=== PATIENT | male | born 1945 | race Caucasian/White ===

== ENCOUNTER 2021-05-05 07:39 | Inpatient (IN) ==
[~2021-05-05 07:39] MED LIST: RAPID SEQUENCE INDUCTION BAG ONE
[2021-05-05] MEDS ORDERED: ALBUT/IPRATROP 3MG/0.5MG NEB 3 ML VIAL NEB ONE (07:44)
[2021-05-05] MEDS ORDERED: ALBUT/IPRATROP 3MG/0.5MG NEB 3 ML VIAL INH STA (07:44)
[2021-05-05] MEDS ORDERED: IPRATROPIUM BROMIDE NEB SOLN 0.02% 2.5 ML VIAL ONE (07:46)
[2021-05-05 08:02] LABS: Basophils # (auto) 0.07 K/uL (0-0.2); Basophils % (auto) 0.8 %; Eosinophils # (auto) 0.77 K/uL (0-0.5); Eosinophils % (auto) 8.7 %; Hemoglobin 14.1 g/dL (14.0-18.0); Immature Granulocytes # (auto) 0.03 K/uL (0.00-0.02); Immature Granulocytes % (auto) 0.3 %; Lymphocytes # (auto) 3.81 K/uL (1.2-3.4); Mean Corpuscular Hemoglobin 32.2 pg (25-34); Mean Corpuscular Hgb Conc 32.8 g/dL (32-36); Mean Corpuscular Volume 98.2 fL (80-100); Mean Platelet Volume 13.5 fL (7.4-10.4); Monocytes # (auto) 0.89 K/uL (0.11-0.59); Neutrophils % (auto) 37.2 %; Platelet Count 218 K/uL (130-400); RDW Coefficient of Variation 14.2 % (11.5-14.5); Red Blood Count 4.38 M/uL (4.7-6.1); White Blood Count 8.87 K/uL (4.8-10.8)
[2021-05-05 08:06] LABS: Base Excess VBG -9.5 mEq/L; Oxygen Saturation VBG 83.6 %; pH VBG 7.23 (7.36-7.41)
[2021-05-05 08:14] LABS: INR 1.1 (0.9-1.1); Partial Thromboplastin Ratio 1.3; Partial Thromboplastin Time 33.3 Seconds (21.0-31.0); Prothrombin Time 11.1 Seconds (9.0-12.0)
[2021-05-05 08:22] LABS: Albumin Level 3.3 gm/dl (3.4-5.0); BUN Creatinine Ratio 21.3 (10-20); Calcium 8.5 mg/dl (8.5-10.1); Creatinine Clr Calc Pharmacy 69.8 ml/min; Est GFR (African American) 88.8 ml/min; Est GFR (Non-African American) 76.6 ml/min; Magnesium 2.1 mg/dl (1.8-2.4)
[2021-05-05 08:27] LABS: Bilirubin,Total 0.4 mg/dl (0.2-1); Globulin 3.2 gm/dl (2.5-4.0); Total Protein 6.5 gm/dl (6.4-8.2); Troponin I 0.018 ng/ml (0-0.045)
--- NOTE | 2021-05-05 08:42 | XRay Report ---
XR chest 1V portable CLINICAL HISTORY: Dyspnea TECHNIQUE: Single frontal radiograph of the chest was obtained. Comparison: None available at the time of this dictation. FINDINGS: No lines and tubes are seen. The cardiomediastinal silhouette is normal. Bilateral lower lung predomi nant airspace opacities are seen. No evidence of pleural effusion or pneumothorax. IMPRESSION: Bilateral lower lung predominant airspace opacities which may represent atelectasis, pneumonia, and/o r aspiration. ACT 112: Negative or not required by law. Electronically signed by: Dany Guan M.D. 05/05/2021 8:40 AM
--- NOTE | 2021-05-05 08:47 | Emergency Department Note ---
Impression & Plan COPD (chronic obstructive pulmonary disease), Acute on chronic respiratory failure with hypoxia, Hemoptysis ED Provider Note Provider: Tho Grimaldo MD DATE OF SERVICE: 05/05/2021 CHIEF COMPLAINT: Shortness of breath, coughing blood HISTORY OF PRESENT ILLNESS: Patient is a 75-year-old gentleman history of VTE on Xarelto presented today with sudden onset of shortness of breath and coughing up a fair amount of blood just this morning. Denies recent fevers. EMS states that they were called and found the patient just outside of his residence very short of breath and coughing up some blood. Was hypoxic on room air. Placed on CPAP and brought here. Patient denies any trauma. He denies any pain at this time. Patient states he is took his Xarelto last last evening and has been on it since of blood clot in his leg 14 years ago. Patient states it still feels like he is coughing up a bit of blood. Denies recent illness or URI symptoms. Again reports the shortness of breath and coughing have been acutely today. REVIEW OF SYSTEMS: A total of 10 review of systems was obtained and negative except as stated above in the HPI. PAST MEDICAL HISTORY: As noted above MEDICATIONS: Reviewed home medications SOCIAL HISTORY:smoker PHYSICAL EXAM: GENERAL: alert and oriented seated on the stretcher CPAP/BiPAP mask in place with increased work of breathing Head: normocephalic and atraumatic EYES: No injection, discharge or icterus. NECK: Trachea midline. ENT: Mucous membranes pink and moist with some blood in the oropharynx noted. Some clots noted. LUNGS: Airway patent. No retractions tachypneic Breath sounds with coarse breath sounds in lower lobes bilaterally with some crackles HEART: Regular rate and rhythm. No chest wall tenderness ABDOMEN: Soft and non-tender, without guarding or rebound. SKIN: Acyanotic, warm, dry, without rashes EXTREMITIES: Without swelling, tenderness or deformity NEUROLOGICAL: No focal deficits. No aphasia. No facial droop or slurred speech. EK bpm sinus tachycardia with PVC. No acute ST segment elevation or depression with a QTC of 474. CONTINUOUS CARDIAC MONITORING: was ordered and showed a heart rate of 70s-110s bpm in normal sinus rhythm to sinus tachycardia Patient's laboratory studies and imaging reviewed. Differential includes Reactive airway disease, pneumonia, pneumothorax, COPD, CHF, infections, cardiac ischemia, pulmonary embolism, musculoskeletal, gastrointestinal, as well as other pathologies. IMPRESSION/MEDICAL DECISION MAKING: Patient with acute shortness of breath and coughing up blood on Xarelto. Patient also hypoxic on room air requiring BiPAP supplementation. Given DuoNeb. Coarse breath sounds more than wheezy. Does not seem that infectious no fever noted. Procalcitonin and white blood cell count not elevated. No severe anemia. No hypercarbia noted on VBG or lactate elevation. Chest x-ray questions basilar consolidation and a CT of the chest was completed. No active extravas ation noted per radiology or evidence of PE but groundglass opacities of the lower lobes noted question possible aspiration of the blood. Patient is oxygen is being weaned. Does not seem to be exsanguinating or needing intubation at this point. Bleeding is minimal. Do not believe this is GI bleed. Discussed with the hospitalist team for further care here at the hospital and pulmonary care. Question if he is experienced a small pulmonary vessel rupture and with his anticoagulation began to experience some bleeding. DIAGNOSIS: Hypoxic respiratory failure, hemoptysis, shortness of breath DISPOSITION: Hospitalist will evaluate Patient was agreeable with this plan. Critical Care I have personally spent 32 minutes of critical care time in the direct management of this patient. This includes bedside care, interpretation of diagnostic studies, and testing, discussion with consultants, patient, and other required patient management activities. These 32 minutes is in excess of all separately billable procedures. Past Med/Surg History Medical History COPD (chronic obstructive pulmonary disease) Hemoptysis HLD (hyperlipidemia) Hx of deep venous thrombosis Tobacco dependence due to cigarettes Family History Father Cancer Pancreatic cancer Brother Cancer Metastatic carcinoma with unknown primary Sister Cancer Renal cell carcinoma Mother Alzheimer disease Social History Smoking Status: Current every day smoker Tobacco Type: Cigarettes Hx Alcohol Use: Yes Alcohol type: beer Hx Substance Use: No Preferred Language: Romanian Communication Ability: Effective Bellmaker Required: No Beliefs That Will Affect Care: None Current Living Situation: Alone Feels Safe at Home: Yes Safety Concerns: Feels Safe At This Time Allergies Allergies Allergy/AdvReac Type Severity Reaction Status Date / Time adhesive Allergy Intermediate Verified 05/05/21 09:07 No Known Allergies Allergy Unknown Verified 05/05/21 09:07 Home Meds Home Medications Medication Instructions Recorded Confirmed atorvastatin 10 mg tablet 10 mg PO DAILY 05/05/21 05/05/21 hydroxyzine HCl 25 mg tablet 25 mg PO HS 05/05/21 05/05/21 rivaroxaban 20 mg tablet (Xarelto) 20 mg PO HS 05/05/21 05/05/21 Results & Data (ED) Vital Signs Vital Signs - 24 hr 05/05/21 07:45 05/05/21 07:50 05/05/21 08:01 Temperature 36.7 C Temperature Source Oral Pulse Rate 84 94 H Pulse Rate [Apical] Pulse Rate [Right Finger] 84 Pulse Rhythm Regular Pulse Rhythm [Apical] Pulse Strength Normal Pulse Strength [Apical] Respiratory Rate 30 H 30 H 36 H Respiratory Effort / Characteristics Non-Labored Spontaneous Spontaneous Accessory Muscle Use Labored Short of Breath Respiratory Depth Respiratory Pattern Tachypnea Tachypnea Blood Pressure 170/101 H Blood Pressure [Right Arm] Blood Pressure Mean 124 Blood Pressure Mean [Right Arm] Blood Pressure Position Lying Blood Pressure Position [Right Arm] Pulse Oximetry 98 98 89 L Oxygen Delivery Method BiPAP CPAP Fraction of Inspired Oxygen 45 45 45 SaO2/FiO2 Ratio 197 Sepsis Recent Fever Within 48 Hours No Sepsis New/Unexplained Change in Mental Status No Sepsis Action Taken by Nursing No Action Required 05/05/21 08:08 05/05/21 08:09 05/05/21 08:21 Temperature Temperature Source Pulse Rate Pulse Rate [Apical] Pulse Rate [Right Finger] Pulse Rhythm Pulse Rhythm [Apical] Pulse Strength Pulse Strength [Apical] Respiratory Rate Respiratory Effort / Characteristics Labored Short of Breath Respiratory Depth Respiratory Pattern Tachypnea Blood Pressure Blood Pressure [Right Arm] Blood Pressure Mean Blood Pressure Mean [Right Arm] Blood Pressure Position Blood Pressure Position [Right Arm] Pulse Oximetry 88 L Oxygen Delivery Method CPAP CPAP Fraction of Inspired Oxygen 50 SaO2/FiO2 Ratio Sepsis Recent Fever Within 48 Hours Sepsis New/Unexplained Change in Mental Status Sepsis Action Taken by Nursing 05/05/21 08:28 05/05/21 09:00 05/05/21 09:07 Temperature Temperature Source Pulse Rate 93 H Pulse Rate [Apical] 89 91 H Pulse Rate [Right Finger] Pulse Rhythm Pulse Rhythm [Apical] Regular Regular Pulse Strength Pulse Strength [Apical] Respiratory Rate 24 20 20 Respiratory Effort / Characteristics Short of Breath Non-Labored Non-Labored Spontaneous Respiratory Depth Normal Respiratory Pattern Regular Regular Blood Pressure Blood Pressure [Right Arm] 147/87 H 142/77 H Blood Pressure Mean Blood Pressure Mean [Right Arm] 107 98 Blood Pressure Position Blood Pressure Position [Right Arm] Lying Lying Pulse Oximetry 92 100 100 Oxygen Delivery Method CPAP CPAP Fraction of Inspired Oxygen 50 50 50 SaO2/FiO2 Ratio 184 200 Sepsis Recent Fever Within 48 Hours Sepsis New/Unexplained Change in Mental Status Sepsis Action Taken by Nursing 05/05/21 10:00 Temperature Temperature Source Pulse Rate Pulse Rate [Apical] 79 Pulse Rate [Right Finger] Pulse Rhythm Pulse Rhythm [Apical] Regular Pulse Strength Pulse Strength [Apical] Normal Respiratory Rate 20 Respiratory Effort / Characteristics Non-Labored Respiratory Depth Normal Respiratory Pattern Blood Pressure Blood Pressure [Right Arm] 122/81 Blood Pressure Mean Blood Pressure Mean [Right Arm] 94 Blood Pressure Position Blood Pressure Position [Right Arm] Pulse Oximetry 99 Oxygen Delivery Method CPAP Fraction of Inspired Oxygen 50 SaO2/FiO2 Ratio 198 Sepsis Recent Fever Within 48 Hours Sepsis New/Unexplained Change in Mental Status Sepsis Action Taken by Nursing Laboratory Data Result diagrams: 05/05/21 07:49 05/05/21 07:49 Lab Results 05/05/21 05/05/21 05/05/21 Range/Units 07:49 07:49 07:49 WBC 8.87 (4.8-10.8) K/uL RBC 4.38 L (4.7-6.1) M/uL Hgb 14.1 (14.0-18.0) g/dL Hct 43.0 (42-52) % MCV 98.2 (80-100) fL MCH 32.2 (25-34) pg MCHC 32.8 (32-36) g/dL RDW Std Deviation 51.0 H (36.4-46.3) fL RDW Coeff of Stone 14.2 (11.5-14.5) % Plt Count 218 (130-400) K/uL MPV 13.5 H (7.4-10.4) fL Immature Gran % (Auto) 0.3 % Neut % (Auto) 37.2 % Lymph % (Auto) 43.0 % Harris % (Auto) 10.0 % Eos % (Auto) 8.7 % Baso % (Auto) 0.8 % Neut # (Auto) 3.30 (1.4-6.5) K/uL Lymph # (Auto) 3.81 H (1.2-3.4) K/uL Harris # (Auto) 0.89 H (0.11-0.59) K/uL Eos # (Auto) 0.77 H (0-0.5) K/uL Baso # (Auto) 0.07 (0-0.2) K/uL Immature Gran # (Auto) 0.03 H (0.00-0.02) K/uL PT 11.1 (9.0-12.0) Seconds INR 1.1 (0.9-1.1) APTT 33.3 H (21.0-31.0) Seconds PTT Ratio 1.3 VBG pH (7.36-7.41) VBG pCO2 (38-50) mmHg VBG pO2 mmHg VBG HCO3 mmol/L VBG O2 Saturation % VBG Base Excess mEq/L Barometric Pressure mm/Hg Sodium 141 (136-145) mmol/L Potassium 4.0 (3.5-5.1) mmol/L Chloride 112 H (98-107) mmol/L Carbon Dioxide 20 L (21-32) mmol/L Anion Gap 9.0 (3-11) BUN 21 H (7-18) mg/dl Creatinine 0.97 (0.6-1.4) mg/dl Est Cr Clr Drug Dosing 69.8 ml/min Est GFR ( Amer) 88.8 ml/min Est GFR (Non-Af Amer) 76.6 ml/min BUN/Creatinine Ratio 21.3 H (10-20) Glucose 159 H (70-99) mg/dl Lactate (0.4-2.0) mmol/L Calcium 8.5 (8.5-10.1) mg/dl Magnesium 2.1 (1.8-2.4) mg/dl Total Bilirubin 0.4 (0.2-1) mg/dl AST 29 (15-37) U/L ALT 28 (12-78) U/L Alkaline Phosphatase 70 (45-117) U/L Troponin I 0.018 (0-0.045) ng/ml NT-Pro-B Natriuret Pep 126 (0-900) pg/ml Total Protein 6.5 (6.4-8.2) gm/dl Albumin 3.3 L (3.4-5.0) gm/dl Globulin 3.2 (2.5-4.0) gm/dl Albumin/Globulin Ratio 1.0 (0.9-2) Procalcitonin (0-0.5) ng/ml COVID-19 Eval Order SARS-CoV-2 (PCR) (Negative) 05/05/21 05/05/21 05/05/21 Range/Units 07:51 07:51 07:54 WBC (4.8-10.8) K/uL RBC (4.7-6.1) M/uL Hgb (14.0-18.0) g/dL Hct (42-52) % MCV (80-100) fL MCH (25-34) pg MCHC (32-36) g/dL RDW Std Deviation (36.4-46.3) fL RDW Coeff of Stone (11.5-14.5) % Plt Count (130-400) K/uL MPV (7.4-10.4) fL Immature Gran % (Auto) % Neut % (Auto) % Lymph % (Auto) % Harris % (Auto) % Eos % (Auto) % Baso % (Auto) % Neut # (Auto) (1.4-6.5) K/uL Lymph # (Auto) (1.2-3.4) K/uL Harris # (Auto) (0.11-0.59) K/uL Eos # (Auto) (0-0.5) K/uL Baso # (Auto) (0-0.2) K/uL Immature Gran # (Auto) (0.00-0.02) K/uL PT (9.0-12.0) Seconds INR (0.9-1.1) APTT (21.0-31.0) Seconds PTT Ratio VBG pH 7.23 L (7.36-7.41) VBG pCO2 43 (38-50) mmHg VBG pO2 58 mmHg VBG HCO3 18 mmol/L VBG O2 Saturation 83.6 % VBG Base Excess -9.5 mEq/L Barometric Pressure 731.5 mm/Hg Sodium (136-145) mmol/L Potassium (3.5-5.1) mmol/L Chloride (98-107) mmol/L Carbon Dioxide (21-32) mmol/L Anion Gap (3-11) BUN (7-18) mg/dl Creatinine (0.6-1.4) mg/dl Est Cr Clr Drug Dosing ml/min Est GFR ( Amer) ml/min Est GFR (Non-Af Amer) ml/min BUN/Creatinine Ratio (10-20) Glucose (70-99) mg/dl Lactate 1.6 (0.4-2.0) mmol/L Calcium (8.5-10.1) mg/dl Magnesium (1.8-2.4) mg/dl Total Bilirubin (0.2-1) mg/dl AST (15-37) U/L ALT (12-78) U/L Alkaline Phosphatase (45-117) U/L Troponin I (0-0.045) ng/ml NT-Pro-B Natriuret Pep (0-900) pg/ml Total Protein (6.4-8.2) gm/dl Albumin (3.4-5.0) gm/dl Globulin (2.5-4.0) gm/dl Albumin/Globulin Ratio (0.9-2) Procalcitonin < 0.05 (0-0.5) ng/ml COVID-19 Eval Order SARS-CoV-2 (PCR) (Negative) 05/05/21 05/05/21 Range/Units 08:19 08:19 WBC (4.8-10.8) K/uL RBC (4.7-6.1) M/uL Hgb (14.0-18.0) g/dL Hct (42-52) % MCV (80-100) fL MCH (25-34) pg MCHC (32-36) g/dL RDW Std Deviation (36.4-46.3) fL RDW Coeff of Stone (11.5-14.5) % Plt Count (130-400) K/uL MPV (7.4-10.4) fL Immature Gran % (Auto) % Neut % (Auto) % Lymph % (Auto) % Harris % (Auto) % Eos % (Auto) % Baso % (Auto) % Neut # (Auto) (1.4-6.5) K/uL Lymph # (Auto) (1.2-3.4) K/uL Harris # (Auto) (0.11-0.59) K/uL Eos # (Auto) (0-0.5) K/uL Baso # (Auto) (0-0.2) K/uL Immature Gran # (Auto) (0.00-0.02) K/uL PT (9.0-12.0) Seconds INR (0.9-1.1) APTT (21.0-31.0) Seconds PTT Ratio VBG pH (7.36-7.41) VBG pCO2 (38-50) mmHg VBG pO2 mmHg VBG HCO3 mmol/L VBG O2 Saturation % VBG Base Excess mEq/L Barometric Pressure mm/Hg Sodium (136-145) mmol/L Potassium (3.5-5.1) mmol/L Chloride (98-107) mmol/L Carbon Dioxide (21-32) mmol/L Anion Gap (3-11) BUN (7-18) mg/dl Creatinine (0.6-1.4) mg/dl Est Cr Clr Drug Dosing ml/min Est GFR ( Amer) ml/min Est GFR (Non-Af Amer) ml/min BUN/Creatinine Ratio (10-20) Glucose (70-99) mg/dl Lactate (0.4-2.0) mmol/L Calcium (8.5-10.1) mg/dl Magnesium (1.8-2.4) mg/dl Total Bilirubin (0.2-1) mg/dl AST (15-37) U/L ALT (12-78) U/L Alkaline Phosphatase (45-117) U/L Troponin I (0-0.045) ng/ml NT-Pro-B Natriuret Pep (0-900) pg/ml Total Protein (6.4-8.2) gm/dl Albumin (3.4-5.0) gm/dl Globulin (2.5-4.0) gm/dl Albumin/Globulin Ratio (0.9-2) Procalcitonin (0-0.5) ng/ml COVID-19 Eval Order Covid19 at [facility] SARS-CoV-2 (PCR) NEGATIVE (Negative) Administered Medications Albuterol (Albut/Ipratrop 3mg/0.5mg Neb 3 Ml Vial) 3 ml NEB Q4R JORGE LUIS Stop: 06/04/21 12:28 Last Admin: 05/05/21 12:46 Dose: 3 ml Documented by: [id number] Folic Acid (Folic Acid 1 Mg Tab) 1 mg PO QAM JORGE LUIS Stop: 06/04/21 12:29 Last Admin: 05/05/21 12:46 Dose: 1 mg Documented by: [id number] Guaifenesin/Codeine Phosphate (Guaifenesin/Codeine 100mg/10mg 5ml Udc) 5 ml PO Q6H JORGE LUIS Stop: 06/04/21 13:59 Last Admin: 05/05/21 15:07 Dose: 5 ml Documented by: [id number] Doxycycline Hyclate 100 mg/ (Dextrose) 110 mls @ 50 mls/hr IV Q12H JOREG LUIS Stop: 05/10/21 13:59 Last Admin: 05/05/21 15:07 Dose: 50 mls/hr Documented by: [id number] Methylprednisolone 40 mg/ (Syringe) 0.64 mls @ 1.5 mls/min IV Q12H JORGE LUIS Stop: 06/04/21 13:59 Last Admin: 05/05/21 15:07 Dose: 1.5 mls/min Documented by: [id number] Nicotine (Nicotine 21 Mg/24 Hr Tdsy) 21 mg TD QAM [facility] Stop: 06/04/21 10:59 Last Admin: 05/05/21 12:41 Dose: Not Given Documented by: [id number] Thiamine HCl (Thiamine Hcl 100 Mg Tab) 100 mg PO QAM [facility] Stop: 06/04/21 12:29 Last Admin: 05/05/21 12:46 Dose: 100 mg Documented by: [id number] Discontinued Medications Albuterol (Albut/Ipratrop 3mg/0.5mg Neb 3 Ml Vial) 12 ml NEB ONE ONE Stop: 05/05/21 07:45 Last Admin: 05/05/21 08:21 Dose: 12 ml Documented by: [id number] Albuterol (Albut/Ipratrop 3mg/0.5mg Neb 3 Ml Vial) 12 ml INH ONE STA Stop: 05/05/21 07:45 Last Admin: 05/05/21 08:21 Dose: Not Given Documented by: [id number] Ioversol (Optiray 320 125ml) 120 ml IV ONCE ONE Stop: 05/05/21 09:06 Last Admin: 05/05/21 08:59 Dose: 120 ml Documented by: [id number] Ipratropium Fletcher (Ipratropium Fletcher Neb Soln 0.02% 2.5 Ml Vial) Confirm Administered Dose 2 mg .ROUTE .STK-MED ONE Stop: 05/05/21 07:47 Last Admin: 05/05/21 09:55 Dose: Not Given Documented by: [id number] Miscellaneous (Rapid Sequence Induction Bag) Confirm Administered Dose 1 ea .ROUTE .STK-MED ONE Stop: 05/05/21 07:38 Last Admin: 05/05/21 09:55 Dose: Not Given Documented by: [id number] Imaging Data Radiologist's Impression: Chest X-Ray 05/05/21 07:44 XR chest 1V portable CLINICAL HISTORY: Dyspnea TECHNIQUE: Single frontal radiograph of the chest was obtained. Comparison: None available at the time of this dictation. FINDINGS: No lines and tubes are seen. The cardiomediastinal silhouette is normal. Bilateral lower lung predominant airspace opacities are seen. No evidence of pleural effusion or pneumothorax. IMPRESSION: Bilateral lower lung predominant airspace opacities which may represent atelectasis, pneumonia, and/or aspiration. ACT 112: Negative or not required by law. Electronically signed by: Dany Guan M.D. 05/05/2021 8:40 AM Chest CTA 05/05/21 08:38 CT angio chest PE protocol CLINICAL HISTORY: PE, hypoxia, coughing blood TECHNIQUE: Multidetector row helical CT of the chest was performed. Coronal and sagittal reformations were obtained. Automated dose lowering techniques and/or adjustment according to patient size were utilized for this exam. Comparison: None available at the time of this dictation. FINDINGS: Lungs and pleura: Multifocal groundglass and consolidative opacities are seen most prominent in the bilateral lower lungs. Emphysematous and scarring changes are noted. Heart and pericardium: Heart size is normal. No pericardial effusion. Vessels: No evidence of pulmonary embolism. Mediastinum and anuradha: Unremarkable. Chest wall and lower neck: Unremarkable. Abdomen: A hiatal hernia is seen. Bones: Unremarkable. IMPRESSION: 1. No evidence of pulmonary embolism. 2. Multifocal groundglass and consolidative opacities are favored to represent infectious/plantar process. 3. Chronic emphysematous changes. ACT 112: Negative or not required by law. Electronically signed by: Dany Guan M.D. 05/05/2021 9:36 AM Discharge Plan Visit Data Chief Complaint: Respiratory Distress Stated Complaint: RESP DISTRESS ED Provider: Tho Grimaldo Discharge Problem: COPD (chronic obstructive pulmonary disease), Acute on chronic respiratory failure with hypoxia, Hemoptysis Patient Disposition: Admitted As Inpatient Discharge Instructions Interventions: ED Discharge Assessment Last Done: 05/05/21 11:50
[2021-05-05] MEDS ORDERED: OPTIRAY 320 125ml IV ONE (09:05)
--- NOTE | 2021-05-05 09:29 | Electrocardiogram Report ---
Test Reason : Blood Pressure : / mmHG Vent. Rate : 102 BPM Atrial Rate : 102 BPM P-R Int : 188 ms QRS Dur : 094 ms QT Int : 364 ms P-R-T Axes : 075 021 086 degrees QTc Int : 474 ms Poor data quality, interpretation may be adversely affected Sinus tachycardia with occasional Premature ventricular complexes and Fusion complexes Left atrial enlargement Abnormal ECG When compared with ECG of 21-MAY-2008 12:15, Premature ventricular complexes are now Present Confirmed by Andrew Holland ([id number]) on 05/05/2021 9:28:51 AM Referred By: REFERRED SELF Confirmed By:Andrew Holland
--- NOTE | 2021-05-05 09:37 | CT Scan Report ---
CT angio chest PE protocol CLINICAL HISTORY: PE, hypoxia, coughing blood TECHNIQUE: Multidetector row helical CT of the chest was performed. Coronal and sagittal reformations were obtained. Automated dose lowering techniques and/or adjustment according to patient size were u tilized for this exam. Comparison: None available at the time of this dictation. FINDINGS: Lungs and pleura: Multifocal groundglass and consolidative opacities are seen most prominent in the b ilateral lower lungs. Emphysematous and scarring changes are noted. Heart and pericardium: Heart size is normal. No pericardial effusion. Vessels: No evidence of pulmonary embolism. Mediastinum and anuradha: Unremarkable. Chest wall and lower neck: Unremarkable. Abdomen: A hiatal hernia is seen. Bones: Unremarkable. IMPRESSION: 1. No evidence of pulmonary embolism. 2. Multifocal groundglass and consolidative opacities are favored to represent infectious/plantar pr ocess. 3. Chronic emphysematous changes. ACT 112: Negative or not required by law. Electronically signed by: Dany Guan M.D. 05/05/2021 9:36 AM
--- NOTE | 2021-05-05 10:09 | History & Physical Report ---
Date of Service May 05, 2021 Assessment & Plan (1) Acute on chronic respiratory failure with hypoxia: (2) Hemoptysis: Plan: -Admit to PCU -Consult pulmonology-Dr. Lilly -Check QuantiFERON gold, sputum culture -Holding Xarelto with hemoptysis -Initially hypoxic with O2 sats in low 80-81% on RA. Improved now with bipap 50% O2. Cont incentive spirometry, duo nebs, Does not wear O2 at baseline - VBG pH 7.23, PO2 58, Co2 = 43, HCo3= 18 -will keep n.p.o. until pulmonary evaluates in case needs for bronchoscopy -Follow routine H&H this evening, currently hgb 14.1 -Lactate 1.6, procalcitonin neg -CTA of the chest is negative for PE, shows multifocal groundglass and consolidative opacities possible infection, patient does not have leukocytosis or fever, chronic emphysematous changes - will discuss antibiotic use with attending and pulmonology --- more concern for malignancy with hx of smoking and strong family hx of multiple types of cancer. -Alcohol use of 2-3 beers daily, LFTs are normal, INR 1.1, unlikely that hemoptysis was from GI source as pt denies vomiting, hx of GI bleed. Fine tremor likely anxiety vs withdrawal, will follow pt for withdrawal with WASS for now. (3) COPD (chronic obstructive pulmonary disease): Plan: -Does not use any chronic inhalers or oxygen at baseline -Smoking cessation encouraged at bedside -As above (4) Hx of deep venous thrombosis: Plan: - Single occurrence, no hx of malignancy other than melanoma which was removed 13-14 years ago. Strong family hx of carcinoma. - Hold xarelto - discuss if needs to resume this upon discharge with pulm (5) Tobacco dependence due to cigarettes: Plan: -Smoking cessation encouraged at bedside, will order nicotine patch (6) HLD (hyperlipidemia): Plan: - Check lipid panel with am labs, continue atorvastatin daily DVT ppx: - teds, scds, holding xarelto due to hemoptysis as above CODE: Full code Dispo: From home, likely to remain in the hospital x 1-2 days History of Present Illness Primary Care Provider: Travis Arriaga This is a 75 yo M with PMHx of COPD, smokes cigarettes x 1.5 pack daily for 57 years, and does not require any supplemental O2 at baseline, and HLD on statin therapy. He was previously hospitalized 13-14 years ago for large melanoma removal of L buttocks, and "as they did not suture anything", he was hospitalized for a week to allow for healing. During that timeframe he developed DVT in the Left leg and was placed on xarelto. He denies any other known cancer history. Pt denies family hx of clotting disorder. This was the only occurrence of DVT in his lifetime. Pt presents with acute onset of coughing this morning, producing large amount of bright red hemoptysis, and reports that he could have filled an 8 ounce cup. He was extremely short of breath and called 911. He denies any previous history of hemoptysis. He does admit to having a long bout of Covid approximately 1 year ago for which he is still suffering insomnia, but has since then received full vaccine dose as well as a booster 1 month ago. Negative COVID-19 on admission. He denies any known chemicals, fumes or exposure to TB. He drinks alcohol 2-3 beers daily, but denies any hx of liver issues, or dependence. Reports " I don't need to drink but I do look forward to having it". Last drink was last evening. Pt was found to be hypoxic by EMS with O2 sats 80-81%. He has been placed on bipap in the ER with 50% O2, with significant improvement in O2 sats. VBG pH 7.23, PO2 58, Co2 = 43, HCo3= 18. He feels much more comfortable at this point. He is shaky, but states that he was very anxious about everything this morning, and that he is slowly feeling better now. Denies baseline tremor. 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 Lives at home alone. He admits to drinking 2-3 beers nearly daily, denies dependence and states that he can go weeks without drinking a beer without any withdrawal type symptoms. Smokes 1.5 ppd x 57 yrs. Family history: Father of pancreatic cancer, mother of Alzheimer's, brother of metastatic cancer of unknown primary source, and sister with renal cell carcinoma. Denies family history of cardiac disease or diabetes. Allergies Allergy/AdvReac Type Severity Reaction Status Date / Time adhesive Allergy Intermediate Verified 05/05/21 09:07 No Known Allergies Allergy Unknown Verified 05/05/21 09:07 Home Medications Medication Instructions Recorded Confirmed Type atorvastatin 10 mg tablet 10 mg PO DAILY 05/05/21 05/05/21 History hydroxyzine HCl 25 mg tablet 25 mg PO HS 05/05/21 05/05/21 History rivaroxaban 20 mg tablet (Xarelto) 20 mg PO HS 05/05/21 05/05/21 History Past Med/Surg History Medical History COPD (chronic obstructive pulmonary disease) Hemoptysis HLD (hyperlipidemia) Hx of deep venous thrombosis Tobacco dependence due to cigarettes Family History Father Cancer Pancreatic cancer Brother Cancer Metastatic carcinoma with unknown primary Sister Cancer Renal cell carcinoma Mother Alzheimer disease Social History Smoking Status: Current every day smoker Tobacco Type: Cigarettes Hx Alcohol Use: Yes Alcohol type: beer Hx Substance Use: No Preferred Language: Guatemalan Communication Ability: Effective Guard Immigration Required: No Beliefs That Will Affect Care: None Current Living Situation: Alone Feels Safe at Home: Yes Safety Concerns: Feels Safe At This Time Review of Systems Review of Systems: Constitutional: No fever, sweats or chills Eyes: No diplopia, no worsening or blurred vision ENT: normal hearing, no trouble swallowing Respiratory: As per HPI. + Acute onset of cough with hemoptysis, + acute dyspnea now improved, no dyspnea at rest or on exertion Cardiovascular: No chest pain, tightness or palpitations Abdomen: No pain, nausea, vomiting, diarrhea or constipation Musculoskeletal: No joint pain, calf pain, swelling Neurologic: No weakness, numbness/tingling, or balance problems Psychiatric: No anxiety or depression Skin: No rash or itch Physical Exam Physical Exam: General: awake, alert, no apparent distress Head: Normocephalic, atraumatic ENT: PERRL, EOMI, unable to examine pharynx as is on Bipap. Chest: + bipap in place, coarse breath sound throughout on R side, diminished breath sounds in left, no wheeze or rales. Cardiac: Regular rate and rhythm, no murmur, no JVD, normal peripheral pulses, good capillary refill Abdominal: NABS x 4 quadrants, soft, nondistended, nontender to palpation, no rebound or guarding Extremities: Normal inspection, no peripheral edema or erythema, calfs nontender to palpation Psych: Normal mood and affect Neuro: AAO x 3, strength intact bilaterally and rated 5/5, no motor deficits, speech is clear, no peripheral sensory deficits Results & Data Results & Data ([facility]) Vital Signs (Past 12 Hours) Vital Signs Temp Pulse Pulse Pulse Resp BP BP 05/05/21 09:07 93 H 20 05/05/21 09:00 91 H 20 142/77 H 05/05/21 08:28 89 24 147/87 H 05/05/21 08:08 05/05/21 08:01 36.7 C 94 H 36 H 170/101 H 05/05/21 07:50 84 30 H 05/05/21 07:45 84 30 H Pulse Ox 05/05/21 09:07 100 05/05/21 09:00 100 05/05/21 08:28 92 05/05/21 08:08 88 L 05/05/21 08:01 89 L 05/05/21 07:50 98 05/05/21 07:45 98 Laboratory Results Labs 05/05/21 05/05/21 05/05/21 07:49 07:49 07:49 WBC 8.87 RBC 4.38 L Hgb 14.1 Hct 43.0 MCV 98.2 MCH 32.2 MCHC 32.8 RDW Std Deviation 51.0 H RDW Coeff of Stone 14.2 Plt Count 218 MPV 13.5 H Immature Gran % (Auto) 0.3 Neut % (Auto) 37.2 Lymph % (Auto) 43.0 [place] % (Auto) 10.0 Eos % (Auto) 8.7 Baso % (Auto) 0.8 Neut # (Auto) 3.30 Lymph # (Auto) 3.81 H [place] # (Auto) 0.89 H Eos # (Auto) 0.77 H Baso # (Auto) 0.07 Immature Gran # (Auto) 0.03 H PT 11.1 INR 1.1 APTT 33.3 H PTT Ratio 1.3 VBG pH VBG pCO2 VBG pO2 VBG HCO3 VBG O2 Saturation VBG Base Excess Barometric Pressure Sodium 141 Potassium 4.0 Chloride 112 H Carbon Dioxide 20 L Anion Gap 9.0 BUN 21 H Creatinine 0.97 Est Cr Clr Drug Dosing 69.8 Est GFR ( Amer) 88.8 Est GFR (Non-Af Amer) 76.6 BUN/Creatinine Ratio 21.3 H Glucose 159 H Lactate Calcium 8.5 Magnesium 2.1 Total Bilirubin 0.4 AST 29 ALT 28 Alkaline Phosphatase 70 Troponin I 0.018 NT-Pro-B Natriuret Pep 126 Total Protein 6.5 Albumin 3.3 L Globulin 3.2 Albumin/Globulin Ratio 1.0 COVID-19 Eval Order SARS-CoV-2 (PCR) 05/05/21 05/05/21 05/05/21 07:51 07:51 08:19 WBC RBC Hgb Hct MCV MCH MCHC RDW Std Deviation RDW Coeff of Stone Plt Count MPV Immature Gran % (Auto) Neut % (Auto) Lymph % (Auto) [place] % (Auto) Eos % (Auto) Baso % (Auto) Neut # (Auto) Lymph # (Auto) [place] # (Auto) Eos # (Auto) Baso # (Auto) Immature Gran # (Auto) PT INR APTT PTT Ratio VBG pH 7.23 L VBG pCO2 43 VBG pO2 58 VBG HCO3 18 VBG O2 Saturation 83.6 VBG Base Excess -9.5 Barometric Pressure 731.5 Sodium Potassium Chloride Carbon Dioxide Anion Gap BUN Creatinine Est Cr Clr Drug Dosing Est GFR ( Amer) Est GFR (Non-Af Amer) BUN/Creatinine Ratio Glucose Lactate 1.6 Calcium Magnesium Total Bilirubin AST ALT Alkaline Phosphatase Troponin I NT-Pro-B Natriuret Pep Total Protein Albumin Globulin Albumin/Globulin Ratio COVID-19 Eval Order Covid19 at [facility] SARS-CoV-2 (PCR) Diagnostic Findings Chest X-Ray 05/05/21 07:44 XR chest 1V portable CLINICAL HISTORY: Dyspnea TECHNIQUE: Single frontal radiograph of the chest was obtained. Comparison: None available at the time of this dictation. FINDINGS: No lines and tubes are seen. The cardiomediastinal silhouette is normal. B ilateral lower lung predominant airspace opacities are seen. No evidence of pleural effusion or pneumothorax. IMPRESSION: Bilateral lower lung predominant airspace opacities which may represent ate lectasis, pneumonia, and/or aspiration. ACT 112: Negative or not required by law. Electronically signed by: Dany Guan M.D. 05/05/2021 8:40 AM Chest CTA 05/05/21 08:38 CT angio chest PE protocol CLINICAL HISTORY: PE, hypoxia, coughing blood TECHNIQUE: Multidetector row helical CT of the chest was performed. Coronal and sagittal reformations were obtained. Automated dose lowering techniques and/or adjustment according to patient size were utilized for this exam. Comparison: None available at the time of this dictation. FINDINGS: Lungs and pleura: Multifocal groundglass and consolidative opacities are seen most prominent in the bilateral lower lungs. Emphysematous and scarring changes are noted. Heart and pericardium: Heart size is normal. No pericardial effusion. Vessels: No evidence of pulmonary embolism. Mediastinum and anuradha: Unremarkable. Chest wall and lower neck: Unremarkable. Abdomen: A hiatal hernia is seen. Bones: Unremarkable. IMPRESSION: 1. No evidence of pulmonary embolism. 2. Multifocal groundglass and consolidative opacities are favored to represent infectious/plantar process. 3. Chronic emphysematous changes. ACT 112: Negative or not required by law. Electronically signed by: Dany Guan M.D. 05/05/2021 9:36 AM ECG Additional Comments: Vent. Rate : 102 BPM Atrial Rate : 102 BPM P-R Int : 188 ms QRS Dur : 094 ms QT Int : 364 ms P-R-T Axes : 075 021 086 degrees QTc Int : 474 ms Poor data quality, interpretation may be adversely affected Sinus tachycardia with occasional Premature ventricular complexes and Fusion complexes Left atrial enlargement Abnormal ECG When compared with ECG of 21-MAY-2008 12:15, Premature ventricular complexes are now Present Code Status & VTE Plan Code Status Full code - discussed with pt at bedside Supervising Physician Co-Signing Physician Notes 75-year-old gentleman with PMH of COPD not on home oxygen chronic tobacco abuse [since age 17, 2 PPD currently], drinks 2-3 beers a day, HLD, DVT 13 to 14 years ago secondary to immobilization after large melanoma removal of left buttock and no prior history of cancer/clotting disorder presented to our ED 05/05 with acute onset of hemoptysis since 3 AM on the morning of arrival. Hold Xarelto, use supplemental oxygen if needed, consult pulmonary, await recommendation, continue home meds, use nicotine patch. Upon examination: GENERAL: Alert and oriented x3. NAD, on 2L HEENT: No pallor, no icterus. Pupils equal, round and reactive to light. Oral mucosa moist. NECK: No JVD, no neck masses. HEART: S1 and S2 heard. Regular rate and rhythm. No murmur, no gallop. RESPIRATORY SYSTEM: Normal AP diameter. No accessory muscle use. No wheezing, no crackles. ABDOMEN: Soft, bowel sounds present, nontender, no distention. CENTRAL NERVOUS SYSTEM: Alert and oriented x3. No facial droop. Speech is clear. Obeys simple commands. Moves extremities. EXTREMITIES: No edema, no erythema seen. I have seen and examined the patient and have discussed the case with the provider above. I agree with the assessment and plan as stated.
[2021-05-05] MEDS ORDERED: ACETAMINOPHEN 325 MG TAB PO PRN (12:29)
[2021-05-05] MEDS ORDERED: ONDANSETRON INJ 2 MG/ML 2 ML VIAL IV PRN (12:29)
[2021-05-05] MEDS: NICOTINE 21 MG/24 HR TDSY TD SCH (12:41)
[2021-05-05] MEDS: FOLIC ACID 1 MG TAB PO SCH (12:46)
[2021-05-05] MEDS: ALBUT/IPRATROP 3MG/0.5MG NEB 3 ML VIAL NEB SCH ×4 (12:46→22:55)
[2021-05-05] MEDS: THIAMINE HCL 100 MG TAB PO SCH (12:46)
--- NOTE | 2021-05-05 13:28 | Pulmonary Consultation ---
Date of Consultation May 05, 2021 Assessment & Plan (1) Hemoptysis: (2) COPD (chronic obstructive pulmonary disease): (3) Hx of deep venous thrombosis: (4) Tobacco dependence due to cigarettes: (5) Acute on chronic respiratory failure with hypoxia: Attending: Dr. Lilly Impression: This is a 75-year-old male with a long smoking history of 1-1/2 packs/day. He has a diagnosis of COPD but is currently not being treated. He follows with his family doctor. CT scan was performed and shows no evidence of pulmonary embolus. There is evidence of multifocal groundglass and consolidative opacities which may be infectious. Patient has an alcohol use history and drinks 2-3 beers per night. He has been placed on folic acid and thiamine and AWSS monitoring. Recommendations: 1. Hemoptysis: * No prior history of malignancy. Patient does smoke 1.5 packs of cigarettes per day * Hold Xarelto * No prior treatment for COPD * At this time we will start the patient on guaifenesin with codeine every 6 hours [id number] * Start doxycycline IV * Initiate steroids using Solu-Medrol 40 mg IV every 12 hours * I have asked the patient to collect further samples of hemoptysis * At this time, patient can spontaneously cough up bloody sputum * No evidence of masses on CT of chest * Would monitor patient for drop in hemoglobin 2. Hypoxia: * Patient denies previous use of supplemental oxygen * Would maintain SaO2 between 88 and 92% based on findings of emphysema with blebs on CT scan * Patient should have two-step before discharge * Continue to monitor and provide supplemental oxygen to maintain SaO2 greater than 88%. 3. COPD: * The patient denies previous pulmonary function testing * Not currently on any bronchodilators * We will monitor the patient during work-up for hemoptysis * Patient should have pulmonary function testing as an outpatient and follow-up with the outpatient clinic * Encourage patient to stop cigarette smoking 4. Tobacco abuse: * Patient states that he is smoked 1-1/2 packs/day for most of his adult life * We will continue to encourage complete abstention of tobacco use * Nicotine patch 21 mg for 7 days and then titrate as tolerated 5. History of left lower extremity DVT * Chronically anticoagulated * Would hold Xarelto at this time due to hemoptysis * No evidence of asymmetrical edema on examination Thank you for including us in the care of this patient. Please refer to Dr. Lilly's addendum for further recommendations and corrections The pulmonary service will continue to follow this patient during this stay. Supervising Physician Co-Signing Physician Notes I saw and evaluated the patient with Dm Cardona, and agree with findings and plan as documented in the note. 75-year-old male with past medical history of COPD active smoker presented to the hospital with complaints of hemoptysis Patient also has history of DVT 8 years ago which was provoked and he has been on Xarelto since then CT chest personally reviewed minimal patchy opacities appreciated left lower lobe this is most likely from hemoptysis. No cavitary lesion or pneumonia appreciated. No concern for DAH Would recommend patient to be on guaifenesin with codeine [id number] Hold Xarelto Monitor H&H Pulmonary will continue to follow. History of Present Illness Reason for Consultation: Hemoptysis Attending Physician: Marine Hernandes MD History of Present Illness Attending: Dr. Lilly This is a 75-year-old male with a past medical history including COPD, hyperlipidemia, history of DVT, chronic anticoagulation on Xarelto 20 mg daily, tobacco abuse. The patient states that last evening he filled an 8 ounce cup with hemoptysis. He states there is some fairly large clots but most of it was mixed with sputum. He presented the emergency room as he has severe shortness of breath and felt as though his "lungs were filled up". Patient received albuterol treatments while in the hospital and has significant improvement. Patient is a lifelong smoker of 1 and half packs per day. He has been anticoagulated for the last 13 years due to deep vein thrombosis of his lower extremity. He was told in the past that he has COPD but currently is not on any inhalers. CTA of the chest was performed on admission. There is no evidence of pulmonary embolus. Patient does have multifocal groundglass and consolidative opacities as well as chronic emphysematous changes. Patient denies any previous history of hemoptysis. He further denies any history of malignancy. He has no previous hospitalizations for COPD exacerbation or hypoxia. He remains fairly active at home. BMI of 22.1 kg/m. The patient does consume alcohol and has 2-3 beers daily. He denies any history of withdrawal. Allergies Allergy/AdvReac Type Severity Reaction Status Date / Time adhesive Allergy Intermediate Verified 05/05/21 09:07 No Known Allergies Allergy Unknown Verified 05/05/21 09:07 Home Medications Medication Instructions Recorded Confirmed Type atorvastatin 10 mg tablet 10 mg PO DAILY 05/05/21 05/05/21 History hydroxyzine HCl 25 mg tablet 25 mg PO HS 05/05/21 05/05/21 History rivaroxaban 20 mg tablet (Xarelto) 20 mg PO HS 05/05/21 05/05/21 History Patient History Medical History COPD (chronic obstructive pulmonary disease) Hemoptysis HLD (hyperlipidemia) Hx of deep venous thrombosis Tobacco dependence due to cigarettes Family History Father Cancer Pancreatic cancer Brother Cancer Metastatic carcinoma with unknown primary Sister Cancer Renal cell carcinoma Mother Alzheimer disease Social History Smoking Status: Current every day smoker Tobacco Type: Cigarettes Hx Alcohol Use: Yes Alcohol type: beer Hx Substance Use: No Preferred Language: Kyrgyz Communication Ability: Effective 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 Please refer to Dr. Lilly's addendum for physical examination Results & Data Results & Data ([facility]) Vital Signs (Past 12 Hours) Vital Signs Temp Pulse Pulse Pulse Resp BP BP 05/05/21 12:48 83 18 05/05/21 11:00 68 20 127/81 05/05/21 10:00 79 20 122/81 05/05/21 09:07 93 H 20 05/05/21 09:00 91 H 20 142/77 H 05/05/21 08:28 89 24 147/87 H 05/05/21 08:08 05/05/21 08:01 36.7 C 94 H 36 H 170/101 H 05/05/21 07:50 84 30 H 05/05/21 07:45 84 30 H Pulse Ox 05/05/21 12:48 96 05/05/21 11:00 99 05/05/21 10:00 99 05/05/21 09:07 100 05/05/21 09:00 100 05/05/21 08:28 92 05/05/21 08:08 88 L 05/05/21 08:01 89 L 05/05/21 07:50 98 05/05/21 07:45 98 Laboratory Results 05/05/21 07:49 05/05/21 07:49 INR 1.1 (0.9-1.1) 05/05/21 07:49 COVID-19 Results 05/05/21 08:19 SARS-CoV-2 (PCR) NEGATIVE Diagnostic Findings Chest X-Ray 05/05/21 07:44 XR chest 1V portable CLINICAL HISTORY: Dyspnea TECHNIQUE: Single frontal radiograph of the chest was obtained. Comparison: None available at the time of this dictation. FINDINGS: No lines and tubes are seen. The cardiomediastinal silhouette is normal. Bilateral lower lung predominant airspace opacities are seen. No evidence of pleural effusion or pneumothorax. IMPRESSION: Bilateral lower lung predominant airspace opacities which may represent atelectasis, pneumonia, and/or aspiration. ACT 112: Negative or not required by law. Electronically signed by: Dany Guan M.D. 05/05/2021 8:40 AM Chest CTA 05/05/21 08:38 CT angio chest PE protocol CLINICAL HISTORY: PE, hypoxia, coughing blood TECHNIQUE: Multidetector row helical CT of the chest was performed. Coronal and sagittal reformations were obtained. Automated dose lowering techniques and/or adjustment according to patient size were utilized for this exam. Comparison: None available at the time of this dictation. FINDINGS: Lungs and pleura: Multifocal groundglass and consolidative opacities are seen most prominent in the bilateral lower lungs. Emphysematous and scarring changes are noted. Heart and pericardium: Heart size is normal. No pericardial effusion. Vessels: No evidence of pulmonary embolism. Mediastinum and anuradha: Unremarkable. Chest wall and lower neck: Unremarkable. Abdomen: A hiatal hernia is seen. Bones: Unremarkable. IMPRESSION: 1. No evidence of pulmonary embolism. 2. Multifocal groundglass and consolidative opacities are favored to represent infectious/plantar process. 3. Chronic emphysematous changes. ACT 112: Negative or not required by law. Electronically signed by: Dany Guan M.D. 05/05/2021 9:36 AM PG Care Time/CCT Total # of Minutes Spent Total Time Spent with Patient: Total time spent is greater than 50% in coordination of care (as documented) at patient's floor/unit and/or counseling patient:60 minutes [place] [address] Inpt Consult Level 5 Patient Type New Medical Decision Making Moderate Complexity Diagnoses Hemoptysis R04.2 COPD (chronic obstructive pulmonary disease) J44.9 Hx of deep venous thrombosis Z86.718 Tobacco dependence due to cigarettes F17.210 Acute on chronic respiratory failure with hypoxia J96.21 Time Spent (min) 60
[2021-05-05] MEDS: DOXYCYCLINE HYCLATE 100 MG in DEXTROSE 5% 100 ML IV SCH (15:07)
[2021-05-05] MEDS: methylPREDNISolone 40 MG in SYRINGE 0 ML IV SCH (15:07)
[2021-05-05] MEDS: guaiFENesin/CODEINE 100MG/10MG 5ML UDC PO SCH ×2 (15:07→21:24)
[2021-05-05] MEDS ORDERED: hydrOXYzine HCl 25 MG TAB PO SCH (21:00)
[2021-05-06] MEDS: guaiFENesin/CODEINE 100MG/10MG 5ML UDC PO SCH ×3 (01:22→14:15)
[2021-05-06] MEDS: methylPREDNISolone 40 MG in SYRINGE 0 ML IV SCH ×2 (01:22→14:15)
[2021-05-06] MEDS: DOXYCYCLINE HYCLATE 100 MG in DEXTROSE 5% 100 ML IV SCH ×2 (01:22→12:30)
[2021-05-06] MEDS: ALBUT/IPRATROP 3MG/0.5MG NEB 3 ML VIAL NEB SCH ×3 (02:53→14:15)
[2021-05-06 06:45] LABS: Hematocrit (blood only) 40.4 % (42-52); Hemoglobin 13.5 g/dL (14.0-18.0); Mean Corpuscular Hemoglobin 32.4 pg (25-34); Mean Corpuscular Hgb Conc 33.4 g/dL (32-36); Mean Corpuscular Volume 96.9 fL (80-100); Mean Platelet Volume 13.9 fL (7.4-10.4); Platelet Count 172 K/uL (130-400); RDW Coefficient of Variation 14.4 % (11.5-14.5); Red Blood Count 4.17 M/uL (4.7-6.1); White Blood Count 7.42 K/uL (4.8-10.8)
[2021-05-06 07:10] LABS: BUN Creatinine Ratio 18.3 (10-20); Calcium 8.8 mg/dl (8.5-10.1); Creatinine Clr Calc Pharmacy 69.2 ml/min; Est GFR (African American) 87.7 ml/min; Est GFR (Non-African American) 75.6 ml/min; Potassium 3.8 mmol/L (3.5-5.1)
[2021-05-06 07:12] LABS: Albumin Globulin Ratio 0.9 (0.9-2); Bilirubin,Total 0.7 mg/dl (0.2-1); Globulin 3.5 gm/dl (2.5-4.0); Total Protein 6.5 gm/dl (6.4-8.2)
[2021-05-06] MEDS: FOLIC ACID 1 MG TAB PO SCH (09:00)
[2021-05-06] MEDS ORDERED: ATORVASTATIN 10 MG TAB PO SCH (09:00)
[2021-05-06] MEDS: THIAMINE HCL 100 MG TAB PO SCH (09:01)
[2021-05-06] MEDS: NICOTINE 21 MG/24 HR TDSY TD SCH (09:01)
[2021-05-06 10:25] VITALS: BP 137/72; TEMP 98.4
[2021-05-06] MEDS ORDERED: MULTIVITAMIN TAB PO SCH (12:30)
--- NOTE | 2021-05-06 12:41 | Pulmonology Progress Note ---
Date of Service May 06, 2021 Assessment & Plan (1) Hemoptysis: (2) COPD (chronic obstructive pulmonary disease): COPD type: unspecified COPD Qualified Code(s): J44.9 - Chronic obstructive pulmonary disease, unspecified (3) Hx of deep venous thrombosis: (4) Tobacco dependence due to cigarettes: (5) Acute on chronic respiratory failure with hypoxia: Plan: Attending: Dr. Lilly Impression: This is a 75-year-old male with a long smoking history of 1-1/2 packs/day. He has a diagnosis of COPD but is currently not being treated. He follows with his family doctor. CT scan was performed and shows no evidence of pulmonary embolus. There is evidence of multifocal groundglass and consolidative opacities which may be infectious. Patient has an alcohol use h istory and drinks 2-3 beers per night. He has been placed on folic acid and thiamine and AWSS monitoring. Recommendations: 1. Hemoptysis: * No prior history of malignancy. Patient does smoke 1.5 packs of cigarettes per day * Hold Xarelto * No prior treatment for COPD * At this time we will start the patient on guaifenesin with codeine every 6 hours [id number] * Start doxycycline IV * Solu-Medrol 40 mg IV every 12 hours. We will convert to prednisone 40 mg daily x5 days and stop * No evidence of masses on CT of chest * No further hemoptysis. We will see the patient via telehealth in 2 weeks. 2. Hypoxia: * Patient denies previous use of supplemental oxygen * Would maintain SaO2 between 88 and 92% based on findings of emphysema with blebs on CT scan * Patient should have two-step before discharge * Continue to monitor and provide supplemental oxygen to maintain SaO2 greater than 88%. 3. COPD: * The patient denies previous pulmonary function testing * Not currently on any bronchodilators at home. * Patient should have pulmonary function testing as an outpatient and follow-up with the outpatient clinic in 2 weeks * Continue to encourage patient to stop cigarette smoking. He is currently refusing NicoDerm patches. Advised him to call the office should he need further aids to stop smoking. 4. Tobacco abuse: * Patient states that he is smoked 1-1/2 packs/day for most of his adult life * We will continue to encourage complete abstention of tobacco use * Nicotine patch 21 mg for 7 days and then titrate as tolerated 5. History of left lower extremity DVT * Chronically anticoagulated * Would hold Xarelto at this time due to hemoptysis * No evidence of asymmetrical edema on examination Thank you for including us in the care of this patient. The pulmonary service will sign off at this time. We will be glad to follow the patient in the outpatient clinic. Admission and Anticipated Discharge Date Admission Date: May 05, 2021 Supervising Physician Co-Signing Physician Notes I saw and evaluated the patient with Dm Cardona, and agree with findings and plan as documented in the note. Patient seen and examined at bedside. No acute distress, no adverse events overnight Patient denied any episodes of hemoptysis since coming to the hospital He has been using guaifenesin with codeine [id number] He has been off of Xarelto since coming to the hospital Patient's DVT was provoked more than 8 years ago he did not have any recurrence, I do think that consideration should be given to stop the Xarelto. I will defer this to the primary care doctor who has been prescribing Xarelto to the patient Avoid flutter valve right now. Outpatient follow-up with pulmonary to see if he will need any inhalers can be thought of Give 5 days of prednisone Continue 5 days of doxycycline Please note the above document was generated using voice recognition software. It may contain grammatical, syntax or spelling errors.Any formal questions or concerns about the content, text or information contained within the body of th is dictation should be directly addressed to the provider for clarification. Subjective Attending: Dr. Lilly Patient seen and examined at bedside. He has no further hemoptysis today he is tolerating the guaifenesin with codeine well. We discussed smoking cessation and he states that he is going to quit smoking cold turkey. I advised him that there are aids available and please call the office as he should require them. He has no further shortness of breath. Cough is significantly better. He has no fever or chills. He denies any chest pain. He feels as though he is back to baseline. Review of Systems Review of Systems: All systems reviewed & are unremarkable except as noted in Subjective Physical Exam Physical Exam: GENERAL : No acute distress. No conversational dyspnea. EYES: No icterus, gaze conjugate NOSE: No evidence of epistaxis. Nasal cannula is in place MOUTH: No lesions or candidiasis. Mucosa moist LUNGS: Patient has some scattered faint wheezes. No appreciation of crackles or rhonchi. HEART: Regular, rate controlled ABDOMEN: Soft, NT, ND, BS Present NEURO: A&OX3 Results & Data Results & Data ([facility]) Vital Signs (Past 12 Hours) Vital Signs Temp Pulse Pulse Pulse Resp BP Pulse Ox 05/06/21 10:22 36.9 C 60 14 137/72 97 05/06/21 10:00 37 C 66 16 137/70 98 05/06/21 09:00 37 C 72 16 142/72 H 94 05/06/21 08:04 36.5 C 78 18 134/73 94 05/06/21 08:00 76 05/06/21 07:15 79 18 94 05/06/21 05:25 75 05/06/21 03:53 36.2 C L 75 18 114/66 93 05/06/21 02:53 71 16 96 Laboratory Results 05/06/21 06:03 05/06/21 06:03 PG Care Time/CCT Total # of Minutes Spent Total Time Spent with Patient: Total time spent is greater than 50% in coordination of care (as documented) at patient's floor/unit and/or counseling patient:20 minutes Coding Level of Care Code 13879 Subseq Hosp Care Lvl 2 Diagnoses Hemoptysis R04.2 COPD (chronic obstructive pulmonary disease) J44.9 COPD type: unspecified COPD Hx of deep venous thrombosis Z86.718 Tobacco dependence due to cigarettes F17.210 Acute on chronic respiratory failure with hypoxia J96.21 Time Spent (min) 20
[2021-05-06 14:44] VITALS: O2SAT 98
[2021-05-06 14:49] VITALS: PULSE 82
--- NOTE | 2021-05-06 16:53 | Discharge Summary ---
Date of Service May 06, 2021 Admission HPI Per Admitting Provider This is a 75 yo M with PMHx of COPD, smokes cigarettes x 1.5 pack daily for 57 years, and does not require any supplemental O2 at baseline, and HLD on statin therapy. He was previously hospitalized 13-14 years ago for large melanoma removal of L buttocks, and "as they did not suture anything", he was hospitalized for a week to allow for healing. During that timeframe he developed DVT in the Left leg and was placed on xarelto. He denies any other known cancer history. Pt denies family hx of clotting disorder. This was the only occurrence of DVT in his lifetime. Pt presents with acute onset of coughing this morning, producing large amount of bright red hemoptysis, and reports that he could have filled an 8 ounce cup. He was extremely short of breath and called 911. He denies any previous history of hemoptysis. He does admit to having a long bout of Covid approximately 1 year ago for which he is still suffering insomnia, but has since then received full vaccine dose as well as a booster 1 month ago. Negative COVID-19 on admission. He denies any known chemicals, fumes or exposure to TB. He drinks alcohol 2-3 beers daily, but denies any hx of liver issues, or dependence. Reports " I don' t need to drink but I do look forward to having it". Last drink was last evening. Pt was found to be hypoxic by EMS with O2 sats 80-81%. He has been placed on bipap in the ER with 50% O2, with significant improvement in O2 sats. VBG pH 7.23, PO2 58, Co2 = 43, HCo3= 18. He feels much more comfortable at this point. He is shaky, but states that he was very anxious about everything this morning, and that he is slowly feeling better now. Denies baseline tremor. 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 Lives at home alone. He admits to drinking 2-3 beers nearly daily, denies dependence and states that he can go weeks without drinking a beer without any withdrawal type symptoms. Smokes 1.5 ppd x 57 yrs. Family history: Father of pancreatic cancer, mother of Alzheimer's, brother of metastatic cancer of unknown primary source, and sister with renal cell carcinoma. Denies family history of cardiac disease or diabetes. Admission Exam Per Admitting Provider GENERAL: Alert and oriented x3. NAD, on 2L HEENT: No pallor, no icterus. Pupils equal, round and reactive to light. Oral mucosa moist. NECK: No JVD, no neck masses. HEART: S1 and S2 heard. Regular rate and rhythm. No murmur, no gallop. RESPIRATORY SYSTEM: Normal AP diameter. No accessory muscle use. No wheezing, no crackles. ABDOMEN: Soft, bowel sounds present, nontender, no distention. CENTRAL NERVOUS SYSTEM: Alert and oriented x3. No facial droop. Speech is clear. Obeys simple commands. Moves extremities. EXTREMITIES: No edema, no erythema seen. Principal Diagnosis Hemoptysis, on Xarelto for remote h/o DVT Discharge Exam GENERAL: Alert and oriented x3. NAD, on RA HEENT: No pallor, no icterus. Pupils equal, round and reactive to light. Oral mucosa moist. NECK: No JVD, no neck masses. HEART: S1 and S2 heard. Regular rate and rhythm. No murmur, no gallop. RESPIRATORY SYSTEM: Normal AP diameter. No accessory muscle use. No wheezing, no crackles. ABDOMEN: Soft, bowel sounds present, nontender, no distention. CENTRAL NERVOUS SYSTEM: Alert and oriented x3. No facial droop. Speech is clear. Obeys simple commands. Moves extremities. EXTREMITIES: No edema, no erythema seen. Discharge Data Allergies Allergy/AdvReac Type Severity Reaction Status Date / Time adhesive Allergy Intermediate Verified 05/05/21 09:07 No Known Allergies Allergy Unknown Verified 05/05/21 09:07 Consultations 05/05/21 10:07 ED Decision to Admit Stat 05/05/21 10:39 Consult Pulmonology Routine Ordered Studies 05/05/21 08:38 CT angio chest PE protocol Stat Hospital Course (1) Hemoptysis: 75-year-old gentleman with PMH of COPD not on home oxygen chronic tobacco abuse [since age 17, 2 PPD currently], drinks 2-3 beers a day, HLD, DVT 13 to 14 years ago secondary to immobilization after large melanoma removal of left buttock and no prior history of cancer/clotting disorder presented to our ED 05/05 with acute onset of hemoptysis since 3 AM on the morning of arrival. Xarelto was held as obvious. Patient initially required supplemental oxygen, later on was stable on room air. Patient did not have further episodes of coughing up of blood after admission. Pulmonology evaluated the patient while inpatient, recommends discharging him on steroid for 5 days and outpatient pulmonology follow-up for pulmonary function test. We are holding his Xarelto for now, patient made aware, patient advised to establish blood doctor as an outpatient to follow-up on need for continuing his Xarelto. Patient to follow- up with his PCP within a week time. Patient hemodynamically stable with no new hemoptysis event at the time of discharge. Admitting procalcitonin was negative and abdomen seeing CTA chest was negative for PE/showed chronic emphysematous changes without obvious mass. Following instructions were communicated to the patient at time discharge: Follow-up with your primary care physician within a week time. Your blood thinner Xarelto has been held due to your recent condition of coughing of blood, recommend establish hematology doctor going forward for discussion on continuation of your blood thinner. Strongly advise to quit smoking, will discharge with nicotine patch, follow-up with your primary care physician for further evaluation. Take medications as prescribed. Follow-up with your lung doctor as scheduled. You will need outpatient pulmonary function test. Total Time Total Time Spent Total Time Spent (In Minutes): 40 Discharge Plan Discharge Items Patient Disposition: Home - Self-Care Reason For Visit: ACUTE HYPOXIC RESPITORY DISTRESS, HEMOPTYSIS Discharge Diagnosis: Hemoptysis, on Xarelto Activity: Resume your previous activity Non-emergency contact: Primary Care Provider Call non-emergency contact if: you have any medication questions and your symptoms worsen Follow-up/Referrals: Dm Cardona PA-C [Hospitalist] - (You will receive a phone call from Dm Cardona PA-C on , 05/19/2021 at 9:00am for a telelhealth visit) Travis Arriaga [Primary Care Provider] - 05/09/21 2:00 pm ([facility] [address] [place] [address], [place] ) Diet: Heart Healthy Addtl Attending Provider Instructions: Follow-up with your primary care physician within a week time. Your blood thinner Xarelto has been held due to your recent condition of coughing of blood, recommend establish hematology doctor going forward for discussion on continuation of your blood thinner. Strongly advise to quit smoking, will discharge with nicotine patch, follow-up with your primary care physician for further evaluation. Take medications as prescribed. Follow-up with your lung doctor as scheduled. You will need outpatient pulmonary function test. Pending Studies at Discharge: No Stand-Alone Forms: [facility], Smoking Cessation Medications and DC Order Prescriptions: New nicotine [Nicoderm CQ] 21 mg/24 hr Patch 24 Hour 21 mg transdermal QAM Qty: 7 RF: 0 codeine-guaifenesin [Guaiatussin AC] 10-100 mg/5 mL Liquid 5 ml PO Q6H Qty: 120 RF: 0 Remove Nicoderm Patch 1 dose Not Applicable DAILY@0859 7 Days RF: 0 doxycycline hyclate 100 mg tablet 100 mg PO BID 4 Days Qty: 8 RF: 0 prednisone 20 mg tablet 40 mg PO DAILY 5 Days Qty: 10 RF: 0 Continued atorvastatin 10 mg tablet 10 mg PO DAILY RF: 0 hydroxyzine HCl 25 mg tablet 25 mg PO HS RF: 0 Discontinued Xarelto 20 mg tablet 20 mg PO HS RF: 0 Discharge Orders: Discharge Order (Routine); Ordered 05/06/21 Ordered By: Marine Hernandes Admission Data Admit Date/Time: 05/05/21 10:15 Attending Provider: Marine Hernandes Admit Provider: Marine Hernandes Primary Care Provider: Travis Arriaga Other Providers: Tricia Lilly ; Marine Hernandes Other Interventions: Discharge Summary Assessment (RN) Last Done: 05/06/21 14:38
[2021-05-09 14:21] LABS: Quantiferon Mitogen-NIL 2.37 IU/mL; Quantiferon NIL 0.02 IU/mL; Quantiferon TB Gold Plus NEGATIVE (NEGATIVE)
== END 2021-05-06 15:59 | disposition home or self-care (01) | DRG 189 ==
LOC: ED 07:39 → EDINP 10:15 → 2S 11:50